=== PATIENT | female | born 1980 | race Two or more races ===

== ENCOUNTER → 2019-11-23 | Outpatient (CLI) | payer BC ==
--- NOTE | 2019-11-23 19:15 | RAD ---
PA and lateral chest. HISTORY: Cough, congestion PA and lateral views were taken of the chest. The film is mildly overpenetrated limiting evaluation of the lung apices. Heart is normal in size. There is no pleural effusion. There are no definite infiltrates. IMPRESSION: 1. Mild limitations of the film. 2. No acute infiltrates. Electronically signed by: Adam Santos MD (11/23/2019 7:12 PM) [id number]
== END | disposition home or self-care (01) ==
LOC: PMG 18:15
PROVIDERS: ATTEND Registered Nurse
DX: R05 Cough (principal)
CPT/HCPCS: 71046